=== PATIENT | male | born 1990 | race Caucasian/White ===

== ENCOUNTER → 2021-05-23 | Outpatient (CLI) | payer OTHER ==
[~2021-05-23] MED LIST: IBUPROFEN600 MG PO; NORFLEX 100 MG100 MG PO
== END ==
LOC: KOH-I 12:52
DX: M54.2 Cervicalgia (principal); M54.50 Low back pain, unspecified; M54.9 Dorsalgia, unspecified; R05.1 Acute cough
CPT/HCPCS: 71046; 72040; 72070; 72100

== ENCOUNTER → 2021-08-02 | Outpatient (CLI) | payer OTHER | LOC: EMI 14:53 | DX: M54.50 Low back pain, unspecified (principal); M47.816 Spondylosis without myelopathy or radiculopathy, lumbar region; M47.817 Spondylosis without myelopathy or radiculopathy, lumbosacral region | CPT/HCPCS: 72148 ==

== ENCOUNTER → 2021-11-14 | Outpatient (CLI) | payer OTHER | LOC: KOH-I 16:26 | DX: R05.9 Cough, unspecified (principal) | CPT/HCPCS: 71046 ==